=== PATIENT | female | born 1990 | race Caucasian/White ===

== ENCOUNTER 2018-11-30 16:48 | Emergency (ER) | payer OTHER ==
[~2018-11-30] VITALS: Ht 162.6 cm; Wt 86.2 kg
[2018-11-30] MEDS ORDERED: ONDANSETRON PF 4 MG/2 ML VIAL. IVP ONE (17:45)
[2018-11-30] MEDS ORDERED: LIDO:MAALOX 1:1 20 ML SINGLE DOSE. SWSW ONE (17:45)
[2018-11-30] MEDS ORDERED: IV NORMAL SALINE 1000ML BAG 1,000 ML IV ONE (17:45)
[2018-11-30] MEDS ORDERED: FAMOTIDINE 20 MG/2 ML VIAL IVP ONE (17:45)
[2018-11-30 17:59] LABS: BILIRUBIN,URINE NEGATIVE (NEG); CLARITY,URINE CLEAR; COLOR,URINE YELLOW; NITRITE,URINE NEGATIVE (NEG); PROTEIN,URINE NEGATIVE (NEG-TRACE); UROBILINOGEN,URINE 0.2 mg/dL (0.2 mg/dL)
[2018-11-30 18:02] LABS: AMPHETAMINE/METHAMPHETAMINE NEG (NEG); BARBITURATES NEG (NEG); BENZODIAZEPINES NEG (NEG); CANNABINOIDS POS (NEG); COCAINE NEG (NEG); METHADONE NEG (NEG); OPIATES NEG (NEG); PHENCYCLIDINE NEG (NEG)
[2018-11-30 18:09] LABS: BACTERIA,URINE FEW /HPF (0-FEW); RBC,URINE 0 /HPF (0-2); SQUAMOUS EPITHELIAL CELL,UR OCC /LPF; WBC,URINE OCC /HPF (0-4)
[2018-11-30 18:48] LABS: BASO # 0.1 x10^3/uL (0.0-0.2); BASO % 1 % (0-3); EOS % 0 % (0-3); HEMATOCRIT 42.8 % (36.0-47.0); HEMOGLOBIN 14.5 g/dL (12.0-15.5); LYMPH # 0.8 x10^3/uL (1.0-4.8); LYMPH % 6 % (24-48); MEAN CORPUSCULAR HEMOGLOBIN 29 pg (25-35); MEAN CORPUSCULAR HGB CONC 34 g/dL (31-37); MEAN CORPUSCULAR VOLUME 87 fL (79-100); MONO # 0.3 x10^3/uL (0.0-1.1); MONO % 2 % (0-9); NEUT # 12.9 x10^3/uL (1.8-7.7); NEUT % 91 % (31-73); PLATELET COUNT 304 x10^3/uL (140-400); RED BLOOD COUNT 4.93 x10^6/uL (3.50-5.40); RED CELL DISTRIBUTION WIDTH 13.5 % (11.5-14.5); WHITE BLOOD COUNT 14.2 x10^3/uL (4.0-11.0)
--- NOTE | 2018-11-30 18:53 | RAD ---
Complete abdominal ultrasound dated 11/30/2018. No comparison available. CLINICAL INDICATION: Abdominal pain nausea vomiting. FINDINGS: Liver is of diffuse increased echogenicity compatible with fatty infiltration. No apparent mass. Intrahepatic and extra hepatic biliary tree are normal in caliber. The common bile duct measures 3.7 mm. Echogenic shadowing foci within the gallbladder lumen. No wall thickening or pericholecystic fluid. Negative Wood's sign. Right kidney measures 9.5 cm in length. Left kidney measures 11.2 cm in length. No hydronephrosis. Spleen is homogeneous in echogenicity and measures 10.9 cm is longitudinal. Limited visualized portions of pancreas aorta and IVC unremarkable. No significant ascites. IMPRESSION: 1. Cholelithiasis with no secondary signs of acute cholecystitis. 2. Fatty infiltration of the liver. Electronically signed by: Jonny Tamez MD (11/30/2018 6:50 PM) [facility]
[2018-11-30 19:28] LABS: CALCIUM 9.3 mg/dL (8.5-10.1); CREATININE 0.9 mg/dL (0.6-1.0); GFR 75.1; POTASSIUM 4.3 mmol/L (3.5-5.1)
[2018-11-30 19:35] LABS: ALBUMIN 3.9 g/dL (3.4-5.0); ALBUMIN/GLOBULIN RATIO 1.3 (1.0-1.7); TOTAL BILIRUBIN 0.4 mg/dL (0.2-1.0); TOTAL PROTEIN 6.8 g/dL (6.4-8.2)
[2018-11-30 19:47] LABS: % BANDS 2 % (0-9); % LYMPHS 6 % (24-48); % MONOS 5 % (0-10); % SEGS 87 % (35-66); PLT ESTIMATE ADEQUATE (ADEQUATE)
[2018-11-30] MEDS ORDERED: ONDANSETRON PF 4 MG/2 ML VIAL. IV ONE (20:15)
[2018-11-30 20:16] VITALS: BP 125/92
[2018-11-30] MEDS ORDERED: ONDA4TAB7 PO (20:48)
--- NOTE | 2018-11-30 20:48 | PHYS DOC ---
Past Medical History Past Medical History: Anxiety, Bipolar, Depression, UTI, Other Past Surgical History: Tonsillectomy, Other Additional Past Surgical Histo: tm tubes Alcohol Use: None Drug Use: Marijuana Adult General Chief Complaint Chief Complaint: NAUSEA/VOMITING/DIARRHA HPI HPI Patient is a 28 year old female with history of depression, anxiety, UTI, bipolar, who presents to the ED today complaining of intermittent episodes of right upper quadrant abdominal pain with nausea and vomiting that began today. Patient denies any pain right sternal in the ED. Denies any exacerbating or reli eving factors to her symptoms. Review of Systems Review of Systems Constitutional: Denies fever or chills [] Eyes: Denies change in visual acuity, redness, or eye pain [] HENT: Denies nasal congestion or sore throat [] Respiratory: Denies cough or shortness of breath [] Cardiovascular: No additional information not addressed in HPI [] GI: Reports right upper quadrant abdominal pain with nausea and vomiting, denies bloody stools or diarrhea [] : Denies dysuria or hematuria [] Musculoskeletal: Denies back pain or joint pain [] Integument: Denies rash or skin lesions [] Neurologic: Denies headache, focal weakness or sensory changes [] All other systems were reviewed and found to be within normal limits, except as documented in this note. Current Medications Current Medications Current Medications Medications (Trade) Dose Ordered Sig/Annie Start Time Stop Time Status Last Admin Dose Admin Famotidine (Pepcid Vial) 20 mg 1X ONCE 11/30/18 17:45 11/30/18 17:46 DC 11/30/18 18:09 20 MG Multi-Ingredient Mouthwash/Gargle (Gi Cocktail) 20 ml 1X ONCE 11/30/18 17:45 11/30/18 17:46 DC 11/30/18 18:09 20 ML Ondansetron HCl (Zofran) 4 mg 1X ONCE 11/30/18 20:15 11/30/18 20:21 DC 11/30/18 20:20 4 MG Sodium Chloride 1,000 ml @ 1,000 mls/hr 1X ONCE 11/30/18 17:45 11/30/18 18:44 DC 11/30/18 18:09 1,000 MLS/HR Allergies Allergies Allergies Coded Allergies Type Severity Reaction Last Updated Verified No Known Drug Allergies 10/28/13 No Physical Exam Physical Exam Constitutional: Well developed, well nourished, no acute distress, non-toxic appearance. [] HENT: Normocephalic, atraumatic, bilateral external ears normal, oropharynx moist, no oral exudates, nose normal. [] Eyes: PERRLA, EOMI, conjunctiva normal, no discharge. [] Neck: Normal range of motion, no tenderness, supple, no stridor. [] Cardiovascular:Heart rate regular rhythm, no murmur [] Lungs & Thorax: Bilateral breath sounds clear to auscultation [] Abdomen: Bowel sounds normal, soft, no tenderness, no masses, no pulsatile masses. [] Skin: Warm, dry, no erythema, no rash. [] Back: No tenderness, no CVA tenderness. [] Extremities: No tenderness, no cyanosis, no clubbing, ROM intact, no edema. [] Neurologic: Alert and oriented X 3, normal motor function, normal sensory function, no focal deficits noted. [] Psychologic: Affect normal, judgement normal, mood normal. [] Current Patient Data Vital Signs Vital Signs Date Time Temp Pulse Resp B/P (MAP) Pulse Ox O2 Delivery O2 Flow Rate FiO2 11/30/18 19:46 72 18 126/90 (102) 95 Room Air 11/30/18 17:23 98.5 98.5 Lab Values Laboratory Tests Test 11/30/18 17:33 11/30/18 17:34 11/30/18 17:35 11/30/18 18:40 POC Urine HCG, Qualitative Hcg negative (Negative) Sodium Level 144 mmol/L (136-145) Potassium Level 4.3 mmol/L (3.5-5.1) Chloride Level 108 mmol/L (98-107) H Carbon Dioxide Level 25 mmol/L (21-32) Anion Gap 11 (6-14) Blood Urea Nitrogen 8 mg/dL (7-20) Creatinine 0.9 mg/dL (0.6-1.0) Estimated GFR (Cockcroft-Gault) 75.1 BUN/Creatinine Ratio 9 (6-20) Glucose Level 157 mg/dL (70-99) H Calcium Level 9.3 mg/dL (8.5-10.1) Total Bilirubin 0.4 mg/dL (0.2-1.0) Aspartate Amino Transferase (AST) 12 U/L (15-37) L Alanine Aminotransferase (ALT) 20 U/L (14-59) Alkaline Phosphatase 47 U/L (46-116) Total Protein 6.8 g/dL (6.4-8.2) Albumin 3.9 g/dL (3.4-5.0) Albumin/Globulin Ratio 1.3 (1.0-1.7) Lipase 37 U/L (73-393) L Urine Color Yellow Urine Clarity Clear Urine pH 8.0 Urine Specific [place] 1.020 Urine Protein Negative mg/dL (NEG-TRACE) Urine Glucose (UA) Negative mg/dL (NEG) Urine Ketones (Stick) Trace mg/dL (NEG) Urine Blood Negative (NEG) Urine Nitrite Negative (NEG) Urine Bilirubin Negative (NEG) Urine Urobilinogen Dipstick 0.2 mg/dL (0.2 mg/dL) Urine Leukocyte Esterase Negative (NEG) Urine RBC 0 /HPF (0-2) Urine WBC Occ /HPF (0-4) Urine Squamous Epithelial Cells Occ /LPF Urine Bacteria Few /HPF (0-FEW) Urine Mucus Slight /LPF Urine Opiates Screen Neg (NEG) Urine Methadone Screen Neg (NEG) Urine Barbiturates Neg (NEG) Urine Phencyclidine Screen Neg (NEG) Urine Amphetamine/Methamphetamine Neg (NEG) Urine Benzodiazepines Screen Neg (NEG) Urine Cocaine Screen Neg (NEG) Urine Cannabinoids Screen Pos (NEG) Urine Ethyl Alcohol Neg (NEG) White Blood Count 14.2 x10^3/uL (4.0-11.0) H Red Blood Count 4.93 x10^6/uL (3.50-5.40) Hemoglobin 14.5 g/dL (12.0-15.5) Hematocrit 42.8 % (36.0-47.0) Mean Corpuscular Volume 87 fL (79-100) Mean Corpuscular Hemoglobin 29 pg (25-35) Mean Corpuscular Hemoglobin Concent 34 g/dL (31-37) Red Cell Distribution Width 13.5 % (11.5-14.5) Platelet Count 304 x10^3/uL (140-400) Neutrophils (%) (Auto) 91 % (31-73) H Lymphocytes (%) (Auto) 6 % (24-48) L Monocytes (%) (Auto) 2 % (0-9) Eosinophils (%) (Auto) 0 % (0-3) Basophils (%) (Auto) 1 % (0-3) Neutrophils # (Auto) 12.9 x10^3/uL (1.8-7.7) H Lymphocytes # (Auto) 0.8 x10^3/uL (1.0-4.8) L Monocytes # (Auto) 0.3 x10^3/uL (0.0-1.1) Eosinophils # (Auto) 0.0 x10^3/uL (0.0-0.7) Basophils # (Auto) 0.1 x10^3/uL (0.0-0.2) Segmented Neutrophils % 87 % (35-66) H Band Neutrophils % 2 % (0-9) Lymphocytes % 6 % (24-48) L Monocytes % 5 % (0-10) Platelet Estimate Adequate (ADEQUATE) Ethyl Alcohol Level < 10 mg/dL (0-10) Laboratory Tests 11/30/18 18:40 Laboratory Tests 11/30/18 17:34 EKG EKG [] Radiology/Procedures Radiology/Procedures []PROCEDURE: ABDOMEN COMPLETE Complete abdominal ultrasound dated 11/30/2018. No comparison available. CLINICAL INDICATION: Abdominal pain nausea vomiting. FINDINGS: Liver is of diffuse increased echogenicity compatible with fatty infiltration. No apparent mass. Intrahepatic and extra hepatic biliary tree are normal in caliber. The common bile duct measures 3.7 mm. Echogenic shadowing foci within the gallbladder lumen. No wall thickening or pericholecystic fluid. Negative Wood's sign. Right kidney measures 9.5 cm in length. Left kidney measures 11.2 cm in length. No hydronephrosis. Spleen is homogeneous in echogenicity and measures 10.9 cm is longitudinal. Limited visualized portions of pancreas aorta and IVC unremarkable. No significant ascites. IMPRESSION: 1. Cholelithiasis with no secondary signs of acute cholecystitis. 2. Fatty infiltration of the liver. Electronically signed by: Jonny Tamez MD (11/30/2018 6:50 PM) [facility] DICTATED and SIGNED BY: JONNY TAMEZ MD DATE: 11/30/18 076 Course & Med Decision Making Course & Med Decision Making Pertinent Labs and Imaging studies reviewed. (See chart for details) This is a 28-year-old female patient who presents to the ED today with right upper quadrant abdominal pain with nausea and vomiting that began this morning. CBC with a WBC of 14.2, CMP with no acute findings, urine analysis is negative for infection, abdominal ultrasound noted for cholelithiasis nor cholecystitis. Patient has no pain in the ED. Nausea and vomiting is well controlled with Zofran. Discharged to home. Noted for marijuana use, advised to consider not using this drug a that. Provided general surgery for follow-up. Dragon Disclaimer Dragon Disclaimer This electronic medical record was generated, in whole or in part, using a voice recognition dictation system. Departure Departure Impression: Primary Impression: Cholelithiasis Additional Impressions: Nausea and vomiting Marijuana use Disposition: HOME, SELF-CARE Condition: STABLE Referrals: MASOOD TODD (PCP) MAE RIBEIRO MD follow up next week Patient Instructions: Cholelithiasis, [id number] Additional Instructions: You were evaluated in the emergency room and noted to have gallbladder disease. Follow-up with the provided general surgeon in the course of next week. Take the prescribed nausea medicine as needed. Come back to the Ed if symptoms worsen Scripts Ondansetron Hcl (ZOFRAN) 4 Mg Tablet 1 TAB PO Q6HRS, #20 TAB Prov: VIVIAN BUNN SCREENING NURSE 11/30/18 Problem Qualifiers Primary Impression: Cholelithiasis Cholelithiasis location: gallbladder Cholecystitis presence: without cholecystitis Biliary obstruction: without biliary obstruction Qualified Codes: K80.20 - Calculus of gallbladder without cholecystitis without obstruction Additional Impressions: Nausea and vomiting Vomiting type: unspecified Vomiting Intractability: non-intractable Qualified Codes: R11.2 - Nausea with vomiting, unspecified VIVIAN BUNN SCREENING NURSE Nov 30, 2018 20:48
[2018-12-26] MEDS ORDERED: ONDA4TAB7 PO (10:13)
[2018-12-26] MEDS ORDERED: BUSP10TA PO (10:13)
[2018-12-26] MEDS ORDERED: PANT40TA77 PO (10:14)
[2018-12-26] MEDS ORDERED: LAMO100T8 PO (10:14)
== END 2018-11-30 20:52 | disposition home or self-care (01) ==
LOC: ER 16:48
DX: K80.20 Calculus of gallbladder without cholecystitis without obstruction (principal); R11.2 Nausea with vomiting, unspecified; F12.90 Cannabis use, unspecified, uncomplicated; F31.9 Bipolar disorder, unspecified; K76.0 Fatty (change of) liver, not elsewhere classified; Z87.440 Personal history of urinary (tract) infections
CPT/HCPCS: 36415; 76700; 80053; 80307; 81001; 81025; 83690; 85007; 85025; 96361; 96374; 96375; 96376; 99285; G0480; J2405; J3490; J7030

== ENCOUNTER 2019-01-01 06:52 | Day surgery (SDC) | payer OTHER ==
--- NOTE | 2018-12-26 11:00 | HP ---
ADMIT DATE: 01/01/2019 HISTORY OF PRESENT ILLNESS: The patient comes to me because of right upper quadrant pain for about 6 months on and off, it also radiates to her back. She has some bloating, but mostly just pain. She went to the Emergency Room of a number of times and recently went to the Emergency Room at [facility]. They did a sonogram and found that she has gallstones. The patient otherwise is doing relatively well. PAST MEDICAL HISTORY: Shows that she only takes medicines for anxiety and depression, otherwise does not take any medicine. PAST SURGICAL HISTORY: She has not had surgery before. ALLERGIES: She has no allergies. SOCIAL HISTORY: She does smoke marijuana on occasion, but she does not use other illicit drugs, alcohol and does not smoke. FAMILY HISTORY: She has a long history with her mother and other relatives having gallstones and gallbladder surgery. She does have one child who is 3 years old and doing well. REVIEW OF SYSTEMS: Negative except for the pain in the right upper quadrant after eating and this has been going on and off for about 9-10 months now. PHYSICAL EXAMINATION: GENERAL: Shows a slightly obese female in no acute distress. HEAD, EYES, EARS, NOSE, AND THROAT: Grossly normal. CHEST: Clear bilaterally to auscultation. HEART: Had no murmurs, heaves, friction rubs or thrills and did have a rate estimated to be about 72 beats per minute and it was regular. ABDOMEN: Soft. There was no organomegaly, no hernias, no masses could be palpated and she did not have any peritoneal signs at this point. PELVIC: Not done. EXTREMITIES: Grossly normal. IMPRESSION AND PLAN: She had a sonogram, which showed gallstones done at [facility] recently. I will review that. Based on that, we most likely will suggest a cholecystectomy and we will plan to do that laparoscopically. We will proceed and I have answered all questions that she, her mother and her family had and they understands the risks of the surgery. We will proceed. DIAGNOSES: Chronic cholecystitis and cholelithiasis. LAWRENCE AYALA MD DR: KAREN/bolivar JOB#: [id number] / [id number]
[~2019-01-01] VITALS: Ht 160 cm; Wt 86.2 kg
[~2019-01-01 06:52] MED LIST: BUPIVACAINE-EPI 0.5%-1:200000 MPF 30 ML VIAL. INJ ONE; BUSP10TA PO; LAMO100T PO; ONDA4TAB7 PO; PANT40TA77 PO
[2019-01-01] MEDS ORDERED: HYDROmorphone 2 MG/ML VIAL IV PRN (07:00)
[2019-01-01] MEDS ORDERED: IV RINGERS,LACTATED 1000ML 1,000 ML IV SCH (07:00)
[2019-01-01] MEDS ORDERED: PROCHLORPERAZINE 10 MG/2 ML VIAL. IV PRN (07:00)
[2019-01-01] MEDS ORDERED: MORPHINE SULFATE 2 MG/ML VIAL. IV PRN (07:00)
[2019-01-01] MEDS ORDERED: ONDANSETRON PF 4 MG/2 ML VIAL. IV PRN (07:00)
[2019-01-01] MEDS ORDERED: fentaNYL PF VIAL 100 MCG/2 ML VIAL IV PRN (07:00)
[2019-01-01 07:43] LABS: BASO % 0 % (0-3); EOS # 0.3 x10^3/uL (0.0-0.7); EOS % 5 % (0-3); HEMATOCRIT 41.1 % (36.0-47.0); HEMOGLOBIN 14.2 g/dL (12.0-15.5); LYMPH # 1.7 x10^3/uL (1.0-4.8); LYMPH % 27 % (24-48); MEAN CORPUSCULAR HEMOGLOBIN 30 pg (25-35); MEAN CORPUSCULAR HGB CONC 35 g/dL (31-37); MEAN CORPUSCULAR VOLUME 86 fL (79-100); MONO # 0.3 x10^3/uL (0.0-1.1); MONO % 6 % (0-9); NEUT % 63 % (31-73); PLATELET COUNT 287 x10^3/uL (140-400); RED BLOOD COUNT 4.78 x10^6/uL (3.50-5.40); RED CELL DISTRIBUTION WIDTH 12.8 % (11.5-14.5); WHITE BLOOD COUNT 6.3 x10^3/uL (4.0-11.0)
[2019-01-01 08:01] LABS: CALCIUM 8.8 mg/dL (8.5-10.1); CREATININE 0.8 mg/dL (0.6-1.0); POTASSIUM 3.6 mmol/L (3.5-5.1)
[2019-01-01] MEDS ORDERED: SUCCINYLCHOLINE 200 MG/10 ML VIAL. ONE (08:04)
[2019-01-01] MEDS ORDERED: ROCURONIUM 100 MG/10 ML VIAL. ONE (08:04)
[2019-01-01] MEDS ORDERED: fentaNYL PF VIAL 100 MCG/2 ML VIAL ONE ×3 (08:04→13:08)
[2019-01-01] MEDS ORDERED: PROPOFOL 20 ML IV ONE (08:04)
[2019-01-01] MEDS ORDERED: LIDOCAINE 2% PF 5 ML VIAL. ONE (08:04)
[2019-01-01 08:08] LABS: ALBUMIN 3.7 g/dL (3.4-5.0); ALBUMIN/GLOBULIN RATIO 1.3 (1.0-1.7); TOTAL BILIRUBIN 0.3 mg/dL (0.2-1.0); TOTAL PROTEIN 6.5 g/dL (6.4-8.2)
--- NOTE | 2019-01-01 08:36 | PDOC ---
SURGICAL PROGRESS NOTE Subjective no change from dictated H&P Vital Signs Vital Signs Date Time Temp Pulse Resp B/P (MAP) Pulse Ox O2 Delivery O2 Flow Rate FiO2 01/01/19 07:27 98.1 80 20 134/95 98 Room Air 98.1 Labs Laboratory Tests Test 01/01/19 07:09 01/01/19 07:30 Bedside Urine HCG, Qualitative Hcg negative (Negative) White Blood Count 6.3 x10^3/uL (4.0-11.0) Red Blood Count 4.78 x10^6/uL (3.50-5.40) Hemoglobin 14.2 g/dL (12.0-15.5) Hematocrit 41.1 % (36.0-47.0) Mean Corpuscular Volume 86 fL (79-100) Mean Corpuscular Hemoglobin 30 pg (25-35) Mean Corpuscular Hemoglobin Concent 35 g/dL (31-37) Red Cell Distribution Width 12.8 % (11.5-14.5) Platelet Count 287 x10^3/uL (140-400) Neutrophils (%) (Auto) 63 % (31-73) Lymphocytes (%) (Auto) 27 % (24-48) Monocytes (%) (Auto) 6 % (0-9) Eosinophils (%) (Auto) 5 % (0-3) Basophils (%) (Auto) 0 % (0-3) Neutrophils # (Auto) 4.0 x10^3/uL (1.8-7.7) Lymphocytes # (Auto) 1.7 x10^3/uL (1.0-4.8) Monocytes # (Auto) 0.3 x10^3/uL (0.0-1.1) Eosinophils # (Auto) 0.3 x10^3/uL (0.0-0.7) Basophils # (Auto) 0.0 x10^3/uL (0.0-0.2) Prothrombin Time 13.0 SEC (11.7-14.0) Prothromb Time International Ratio 1.0 (0.8-1.1) Activated Partial Thromboplast Time 27 SEC (24-38) Sodium Level 141 mmol/L (136-145) Potassium Level 3.6 mmol/L (3.5-5.1) Chloride Level 105 mmol/L (98-107) Carbon Dioxide Level 28 mmol/L (21-32) Anion Gap 8 (6-14) Blood Urea Nitrogen 11 mg/dL (7-20) Creatinine 0.8 mg/dL (0.6-1.0) Estimated GFR (Cockcroft-Gault) 86.0 BUN/Creatinine Ratio 14 (6-20) Glucose Level 90 mg/dL (70-99) Calcium Level 8.8 mg/dL (8.5-10.1) Total Bilirubin 0.3 mg/dL (0.2-1.0) Aspartate Amino Transf (AST/SGOT) 12 U/L (15-37) Alanine Aminotransferase (ALT/SGPT) 13 U/L (14-59) Alkaline Phosphatase 41 U/L (46-116) Total Protein 6.5 g/dL (6.4-8.2) Albumin 3.7 g/dL (3.4-5.0) Albumin/Globulin Ratio 1.3 (1.0-1.7) Laboratory Tests Test 01/01/19 07:09 01/01/19 07:30 Bedside Urine HCG, Qualitative Hcg negative (Negative) White Blood Count 6.3 x10^3/uL (4.0-11.0) Red Blood Count 4.78 x10^6/uL (3.50-5.40) Hemoglobin 14.2 g/dL (12.0-15.5) Hematocrit 41.1 % (36.0-47.0) Mean Corpuscular Volume 86 fL (79-100) Mean Corpuscular Hemoglobin 30 pg (25-35) Mean Corpuscular Hemoglobin Concent 35 g/dL (31-37) Red Cell Distribution Width 12.8 % (11.5-14.5) Platelet Count 287 x10^3/uL (140-400) Neutrophils (%) (Auto) 63 % (31-73) Lymphocytes (%) (Auto) 27 % (24-48) Monocytes (%) (Auto) 6 % (0-9) Eosinophils (%) (Auto) 5 % (0-3) Basophils (%) (Auto) 0 % (0-3) Neutrophils # (Auto) 4.0 x10^3/uL (1.8-7.7) Lymphocytes # (Auto) 1.7 x10^3/uL (1.0-4.8) Monocytes # (Auto) 0.3 x10^3/uL (0.0-1.1) Eosinophils # (Auto) 0.3 x10^3/uL (0.0-0.7) Basophils # (Auto) 0.0 x10^3/uL (0.0-0.2) Prothrombin Time 13.0 SEC (11.7-14.0) Prothromb Time International Ratio 1.0 (0.8-1.1) Activated Partial Thromboplast Time 27 SEC (24-38) Sodium Level 141 mmol/L (136-145) Potassium Level 3.6 mmol/L (3.5-5.1) Chloride Level 105 mmol/L (98-107) Carbon Dioxide Level 28 mmol/L (21-32) Anion Gap 8 (6-14) Blood Urea Nitrogen 11 mg/dL (7-20) Creatinine 0.8 mg/dL (0.6-1.0) Estimated GFR (Cockcroft-Gault) 86.0 BUN/Creatinine Ratio 14 (6-20) Glucose Level 90 mg/dL (70-99) Calcium Level 8.8 mg/dL (8.5-10.1) Total Bilirubin 0.3 mg/dL (0.2-1.0) Aspartate Amino Transf (AST/SGOT) 12 U/L (15-37) Alanine Aminotransferase (ALT/SGPT) 13 U/L (14-59) Alkaline Phosphatase 41 U/L (46-116) Total Protein 6.5 g/dL (6.4-8.2) Albumin 3.7 g/dL (3.4-5.0) Albumin/Globulin Ratio 1.3 (1.0-1.7) LAWRENCE AYALA MD Jan 01, 2019 08:36
--- NOTE | 2019-01-01 08:39 | PDOC4 ---
Operative Note Operative Note surgeon ................................... corbin pre op Ddx ............................... chronic cholelithiasis post op ddc ...............................chronic cholelithiasis anesthesia ............................... general procedure ................................. laparoscopic cholecystectomy blood loss est .......................... 100 mL fluids ....................................... see anesthesia sheet drains ...................................... none condition...................................satisfactory LAWRENCE AYALA MD Jan 01, 2019 08:39
[2019-01-01] MEDS ORDERED: IOHEXOL 300 MG/ML 50 ML VIAL. ONE (08:52)
[2019-01-01] MEDS ORDERED: DEXAMETHASONE SOD PHOS 4 MG/ML VIAL ONE (09:34)
[2019-01-01] MEDS ORDERED: DESFLURANE > 120 MINUTES IH ONE (09:34)
[2019-01-01] MEDS ORDERED: FAMOTIDINE 20 MG/2 ML VIAL ONE (09:47)
--- NOTE | 2019-01-01 10:45 | RAD ---
CHOLANGIOGRAM INTRAOPERATIVE History: Cholangiogram performed status post cholecystectomy. Comparison: Ultrasound November 30, 2018 Technique/findings: Intraoperative cholangiogram performed after cholecystectomy. Contrast opacifies intrahepatic ducts. Contrast opacifies the common bile duct with opacification of the duodenum. No filling defects. Lower insertion of the cystic duct. 3 spot fluoroscopic images obtained intraoperatively. 0.9 minutes fluoroscopy time. Impression: 1. Intraoperative cholangiogram performed. No common bile duct stenosis, obstruction or injury. Electronically signed by: Korey Ruano DO (01/01/2019 10:43 AM) [facility]
[2019-01-01] MEDS ORDERED: ONDANSETRON PF 4 MG/2 ML VIAL. ONE (10:47)
[2019-01-01] MEDS ORDERED: GLYCOPYRROLATE 1 MG/5 ML VIAL. ONE (10:47)
[2019-01-01] MEDS ORDERED: NEOSTIGMINE METHYLSULFATE 5 MG/5 ML SYRINGE. ONE (10:47)
[2019-01-01] MEDS ORDERED: KETOROLAC 30 MG/ML VIAL. ONE (12:15)
--- NOTE | 2019-01-01 12:47 | DISCH ---
DISCHARGE INSTRUCTIONS Condition on Discharge Condition on Discharge: Stable Activity After Discharge Activity Instructions for Disc: Avoid exertion Diet after Discharge Diet after Discharge: Clear Liquid Wound Incision Care Wound/Incision Care: Other, see below Other wound/incision instructi: leve dressing on as long as possible..fletchernge prn fter that Follow-Up Follow up with: Dr. Ayala Follow Up With: Call and make appt to see me in 2 weeks..816 LAWRENCE AYALA MD Jan 01, 2019 12:46
[2019-01-01] MEDS ORDERED: HYDR-2765 PO (12:50)
[2019-01-01] MEDS ORDERED: PROCHLORPERAZINE 10 MG/2 ML VIAL. ONE (13:09)
[2019-01-01] MEDS: fentaNYL PF VIAL 100 MCG/2 ML VIAL IV PRN ×2 (13:15→13:22)
[2019-01-01 13:59] VITALS: BP 116/67
[2019-01-01] MEDS ORDERED: HYDROcodone/APAP 7.5/325MG 1 TAB TABLET ONE (14:04)
[2019-01-01] MEDS ORDERED: HYDROcodone/APAP 7.5/325MG 1 TAB TABLET PO ONE (14:15)
--- NOTE | 2019-01-02 00:47 | OP ---
DATE OF SURGERY: 01/01/2019 SURGEON: Dav Ayala MD. PREOPERATIVE DIAGNOSES: Chronic cholecystitis and cholelithiasis. POSTOPERATIVE DIAGNOSES: Chronic cholecystitis and cholelithiasis. ANESTHESIA: General. PROCEDURE: Laparoscopic cholecystectomy with operative cholangiogram. TECHNIQUE: Under general anesthesia, the patient was properly prepped and draped in a routine fashion. She had never had surgery before and as such, an infraumbilical incision was made in a longitudinal fashion and carried down through the skin with a 15 blade. It was about an inch in length. We eventually extended as the gallstones were numerous and we could get the gallbladder out without extending the incision somewhat. As such, the pockets were placed in the umbilical area and pulled up and then a Veress needle was placed into the peritoneal cavity. We insufflated up to 15 with CO2 after we had let about 2-3 mL of saline go into the abdomen with gravity. We then placed the 11 mm trocar and the camera there. We inspected the abdomen as the patient was placed in reverse Trendelenburg left side down. We then placed the noncutting blade in the epigastrium, just to the right of the falciform ligament. We then placed, in the right upper quadrant, a 5 mm port and the right lateral area, a 5 mm port. We did this under direct visualization, making certain not to injure any intra-abdominal contents. The gallbladder was seen and did not have many adhesions to it and as such, the right lateral grasper was placed on the fundus and pushed up toward the patient's right shoulder. We then grasped the ampulla and taking some of the fat away, we were able to identify the cystic duct. We encircled it high next to the gallbladder. The lymph node of Calot was noted. We then, after encircling the cystic duct, clipped it twice high up on the gallbladder. We made a small karen in the gallbladder just distal to this on the patient's side and then placed through a needle and the port in the right abdomen, the catheter with Hypaque. This was then, with some difficulty, placed into the cystic duct and we then clipped it in place using a clip. This took some time as it was difficult to get this to stay in on what we did. We obtained a cholangiogram. The radiologist thought the cholangiogram was normal. There was free flow of dye into the duodenum. Common duct was normal. Hepatic radicals were noted. There were no filling defects or other difficulties. As such, the clip was removed holding the catheter in place. We then removed the catheter and needle. We then clipped the cystic duct twice on the patient's side and then divided it. We then identified the cystic artery. We encircled and clipped 3 times on the patient's side and once on the gallbladder side and divided. We then shelled the gallbladder out of gallbladder fossa using Harmonic scalpel, making certain not to injure the liver. We completely did this, but before we completely removed, we looked at the hilum. There was no further bleeding, no bile leaks and no abnormalities at the dissected portion of the gallbladder or its liver bed. The gallbladder was amputated from the liver tip. A 5 mm camera was placed in the epigastric port and the larger camera was removed. We then placed the EndoCatch basket through the umbilical port and placed the gallbladder in it. We then proceeded to try to remove it, the gallstones would not allow this and as such, we had to extend the incision in the infraumbilical area by about an inch and we then divided the subcutaneous and the fascia was divided inferiorly in the midline by about 3/4 of an inch. We were able then to get the gallbladder out. The resultant defect was inspected as we then placed #1 Prolene sutures in the fascia to close the wound. We then insufflated the abdomen back up to 15. There was no air leak and we could see that the fascia had been closed and there was no injury to any intra-abdominal contents. There was nothing adherent to the anterior abdominal wall. We then aspirated a small bit of blood from the lateral liver tip and we were able then to inspect all areas, all was well and we then aspirated all the CO2 from the abdomen and above the liver and below the diaphragm as we removed all the CO2. The ports were then removed and the procedure was basically terminated. Before we had done this, we left the sutures at the infraumbilical area and we did inject 0.5% Marcaine with epinephrine. We did this in the fascia to alleviate postoperative pain. We then irrigated the subcutaneous and the wounds and then, the infraumbilical wound was approximated in the deeper structures using 4-0 Vicryl and the skin was closed using a subcuticular Vicryl. The other 3 ports were closed using subcuticular Vicryl. Tegaderms were applied. The procedure was now terminated. The blood loss was about 40 mL, most came from the infraumbilical decision. The fluids given can be obtained from the anesthesia sheet. No drains were used and the condition of the patient was satisfactory as she has returned to the recovery room. DAV AYALA MD DR: KAREN/bolivar JOB#: [id number] / [id number]
--- NOTE | 2019-01-02 18:06 | PATHOLOGY ---
[facility] Accession Number: [id number] . 01 Material submitted: . gallbladder - GALLBLADDER . 01 Clinical history: . Cholelithiasis . 02 Diagnosis: Gallbladder, laparoscopic cholecystectomy: - Cholelithiasis. - Chronic cholecystitis. - Reactive changes of gallbladder neck lymph node. (JPM:scholarship counselor; 01/02/2019) MBR 01/02/2019 1623 Local . 02 Comment: There is no evidence of malignancy. (JPM:scholarship counselor; 01/02/2019) . 02 Electronically signed: . James De Oliveira MD, Pathologist NPI- [id number] . 01 Gross description: . The specimen is received in formalin labeled "Phaipanya, Ani, gallbladder" and consists of an intact green-pink, smooth, and shiny gallbladder measuring 8.5 x 3.3 x 2.0 cm. The margin is inked black. Opening reveals a lumen filled with tenacious green bile and multiple green-yellow multifaceted calculi measuring 8.3 x 6.0 x 0.5 cm aggregate. The mucosa is green and velvety with scattered yellow flecks and an average wall thickness of 0.1 cm. No masses are identified. Adjacent the gallbladder neck is a lymph node measuring 0.8 x 0.5 cm. Rail Setter sections are submitted in A1. (SDY; 01/01/2019) SYU/SYU 01/01/2019 1633 Local . 02 Pathologist provided ICD-10: K80.10 . 02 CPT . 198919 Specimen Comment: A courtesy copy of this report has been sent to [phone], [phone] Specimen Comment: [id number] Specimen Comment: Report sent to / DR TODD Performed at: 01 [facility] [address], [place], [place] [id number] MD Juve Barber MD Phone: [phone] Performed at: 02 [facility] [address], [place] [id number] MD James De Oliveira MD Phone: [phone]
== END 2019-01-01 14:35 | disposition home or self-care (01) ==
LOC: SURG 06:52
PROVIDERS: ATTEND Specialist
DX: K80.10 Calculus of gallbladder with chronic cholecystitis without obstruction (principal); F31.9 Bipolar disorder, unspecified; E66.9 Obesity, unspecified; F19.90 Other psychoactive substance use, unspecified, uncomplicated; Z79.01 Long term (current) use of anticoagulants; Z98.890 Other specified postprocedural states
CPT/HCPCS: 36415; 47563; 74300; 80053; 81025; 85025; 85610; 85730; J0330; J0690; J0780; J1100; J1885; J2001; J2405; J2704; J2710; J3010; J3490; Q9967; A7015; J7030; J7120